=== PATIENT | female | born 1955 | race Caucasian/White ===

== ENCOUNTER 2018-10-05 09:16 | Day surgery (SDC) | payer OTHER ==
[~2018-10-05] VITALS: Ht 175.3 cm; Wt 92.9 kg
[~2018-10-05 09:16] MED LIST: B Complex #11 EACH PO; CLARITIN10 MG PO; Retin-A15 GM TOP; THERA1 EACH PO; VITAMIN C500 MG PO; VITAMIN D350000 UNIT PO; Valtrex1000 MG PO
--- NOTE | 2018-10-05 11:14 | NUR ---
10/05/18 Camryn4 Amanda Pace SIMETHICONE USED DURING PROCEDURE.
== END 2018-10-05 12:25 | disposition home or self-care (01) ==
LOC: ORSCSDS 09:16
PROVIDERS: Student in an Organized Health Care Education/Training Program
PROC: 0DBF8ZX Excision of Right Large Intestine, Via Natural or Artificial Opening Endoscopic, Diagnostic (ICD-10-PCS; principal; 2018-10-05 10:45)
PROC: 0DBG8ZX Excision of Left Large Intestine, Via Natural or Artificial Opening Endoscopic, Diagnostic (ICD-10-PCS; principal; 2018-10-05 10:45)
PROC: 0DBK8ZX Excision of Ascending Colon, Via Natural or Artificial Opening Endoscopic, Diagnostic (ICD-10-PCS; principal; 2018-10-05 10:45)
PROC: 0DBN8ZX Excision of Sigmoid Colon, Via Natural or Artificial Opening Endoscopic, Diagnostic (ICD-10-PCS; principal; 2018-10-05 10:45)
DX: Z12.11 Encounter for screening for malignant neoplasm of colon (principal); Z86.010 Personal history of colon polyps; D12.2 Benign neoplasm of ascending colon; K63.5 Polyp of colon; K58.9 Irritable bowel syndrome, unspecified; E66.9 Obesity, unspecified; Z68.32 Body mass index [BMI] 32.0-32.9, adult
CPT/HCPCS: 88305; J2704; J7120